=== PATIENT | male | born 2000 | race Caucasian/White ===

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

== ENCOUNTER → 2019-02-11 | Outpatient (CLI) | payer OTHER ==
[~2019-02-11] MED LIST changes: +TRAM50 PO
== END | disposition home or self-care (01) ==
LOC: EDSTATUS 10:00 → LAB FUT 10:00 → LAB 16:14 → LAB SHORT 16:14
DX: K51.90 Ulcerative colitis, unspecified, without complications (principal); K52.9 Noninfective gastroenteritis and colitis, unspecified
CPT/HCPCS: 83993

== ENCOUNTER 2019-04-16 07:44 | Emergency (ER) | payer OTHER ==
[~2019-04-16] VITALS: Ht 177.8 cm; Wt 61.2 kg
== END 2019-04-16 09:52 | disposition home or self-care (01) ==
LOC: ER 07:44
DX: S61.012A Laceration without foreign body of left thumb without damage to nail, initial encounter (principal); S61.211A Laceration without foreign body of left index finger without damage to nail, initial encounter; F32.9 Major depressive disorder, single episode, unspecified; Z79.899 Other long term (current) drug therapy; V29.9XXA Motorcycle rider (driver) (passenger) injured in unspecified traffic accident, initial encounter
CPT/HCPCS: 73130; 99283-25

== ENCOUNTER → 2021-05-02 | Outpatient (CLI) | payer OTHER ==
[2021-05-02 11:53] LABS: BASOPHILS ABSOLUTE AUTO 0.06 K/mm3 (0.00-0.23); BASOPHILS PERCENT AUTO 0 % (0-2); EOSINOPHILS ABSOLUTE AUTO 0.16 K/mm3 (0.00-0.68); EOSINOPHILS PERCENT AUTO 1 % (0-6); Hematocrit 42.4 % (37.0-53.0); Hemoglobin 13.8 g/dL (13.5-17.5); IMMATURE GRAN ABSOLUTE AUTO 0.08 K/mm3 (0.00-0.10); IMMATURE GRAN PERCENT AUTO 0 % (0-1); LYMPHOCYTES ABSOLUTE AUTO 1.89 K/mm3 (0.84-5.20); LYMPHOCYTES PERCENT AUTO 10 % (21-46); MONOCYTES ABSOLUTE AUTO 2.69 K/mm3 (0.16-1.47); MONOCYTES PERCENT AUTO 14 % (4-13); Mean Corpuscular HGB 24.6 pg (26.0-34.0); Mean Corpuscular HGB Conc 32.5 g/dL (31.5-36.5); Mean Corpuscular Volume 76 fL (80-100); Mean Platelet Volume 9.8 fL (9.1-12.4); NEUTROPHILS ABSOLUTE AUTO 14.12 K/mm3 (1.96-9.15); NEUTROPHILS PERCENT AUTO 74 % (41-73); Platelet Count 316 K/mm3 (150-400); RDW Coefficient Variation 17.7 % (11.7-14.2); RDW Standard Deviation 45.5 fL (35.1-46.3); Red Blood Cell Count 5.61 M/mm3 (4.30-5.90)
[2021-05-02 12:04] LABS: Alanine Aminotransfer (ALT/SGP 7 U/L (12-78); Albumin, Blood 3.6 g/dL (3.4-5.0); Albumin/Globulin Ratio 0.8 (0.8-1.8); Alk Phos 77 U/L (40-126); Anion Gap 9 mmol/L (6-16); Aspartate Aminotrans (AST/SGOT 10 U/L (12-37); Bilirubin, Total 0.3 mg/dL (0.1-1.0); Blood Urea Nitrogen 8 mg/dL (8-24); CO2, Blood 27 mmol/L (21-32); Calcium, Blood 8.6 mg/dL (8.5-10.1); Chloride, Blood 98 mmol/L (98-108); Globulin, Blood 4.4 g/dL (2.2-4.0); Glomerular Filtration Rate >60 (60-); Glucose, Blood 101 mg/dL (70-99); Potassium, Blood 3.8 mmol/L (3.5-5.5); Sodium, Blood 134 mmol/L (136-145)
== END | disposition home or self-care (01) ==
LOC: LAB SHORT 11:49
PROVIDERS: Physician Assistant
DX: K51.90 Ulcerative colitis, unspecified, without complications (principal)
CPT/HCPCS: 80053; 85025

== ENCOUNTER 2021-09-23 12:04 | Emergency (ER) | payer OTHER ==
[~2021-09-23] VITALS: Ht 175.3 cm; Wt 63.5 kg
[2021-09-23] MEDS ORDERED: DIPATR PO (12:37)
[2021-09-23] MEDS ORDERED: BALSALAZIDE DI750 M1 PO (12:37)
== END 2021-09-23 12:49 | disposition home or self-care (01) ==
LOC: ER 12:04
DX: Z76.0 Encounter for issue of repeat prescription (principal)
CPT/HCPCS: 99281

== ENCOUNTER 2022-02-21 06:30 | Day surgery (SDC) | payer OTHER ==
[~2022-02-21] VITALS: Ht 175.3 cm; Wt 60.3 kg
[~2022-02-21 06:30] MED LIST changes: +BALSALAZIDE DI750 M1 PO; +DIPATR PO
[2022-02-21 15:10] LABS: Adenovirus F 40/41 Not Detected (NOT DETECT); Astrovirus Not Detected (NOT DETECT); Campylobacter Sp Not Detected (NOT DETECT); Cryptosporidium Not Detected (NOT DETECT); Cyclospora Cayetanensis Not Detected (NOT DETECT); E. Coli O157 Not Detected (NOT DETECT); Entamoeba Histolytica Not Detected (NOT DETECT); Enteroaggregative E. coli-EAEC Not Detected (NOT DETECT); Enteropathogenic E. coli-EPEC Not Detected (NOT DETECT); Enterotoxigenic E. coli-ETEC Not Detected (NOT DETECT); Giardia Lamblia Not Detected (NOT DETECT); Norovirus GI/GII Not Detected (NOT DETECT); Plesiomonas Shigelloides Not Detected (NOT DETECT); Rotavirus A Not Detected (NOT DETECT); Salmonella Sp Not Detected (NOT DETECT); Sapovirus Not Detected (NOT DETECT); Shiga Toxin-prod E. coli-STEC Not Detected (NOT DETECT); Shigella/Enteroin E. coli-EIEC Not Detected (NOT DETECT); Vibrio Cholerae Not Detected (NOT DETECT); Vibrio Sp Not Detected (NOT DETECT); Yersinia Enterocolitica Not Detected (NOT DETECT)
== END 2022-02-21 08:48 | disposition home or self-care (01) ==
LOC: ORSCSDS 06:30
PROVIDERS: Student in an Organized Health Care Education/Training Program
PROC: 0DBE8ZX Excision of Large Intestine, Via Natural or Artificial Opening Endoscopic, Diagnostic (ICD-10-PCS; principal; 2022-02-21 08:00)
PROC: 0DBP8ZX Excision of Rectum, Via Natural or Artificial Opening Endoscopic, Diagnostic (ICD-10-PCS; principal; 2022-02-21 08:00)
DX: K51.90 Ulcerative colitis, unspecified, without complications (principal); K62.5 Hemorrhage of anus and rectum; R19.7 Diarrhea, unspecified; Z79.899 Other long term (current) drug therapy
CPT/HCPCS: 87507; 88305; J2250; J2704; J7120

== ENCOUNTER 2022-07-07 03:32 | Emergency (ER) | payer OTHER ==
[~2022-07-07] VITALS: Ht 175.3 cm; Wt 72.6 kg
[~2022-07-07 03:32] MED LIST changes: +AMOCLA875 PO; +[UNRECOGNIZED DRUG - OTHER] PO
[2022-07-07] MEDS ORDERED: Voltaren100 GM TOP (05:51)
== END 2022-07-07 06:03 | disposition home or self-care (01) ==
LOC: ER 03:32
DX: J06.9 Acute upper respiratory infection, unspecified (principal); R07.81 Pleurodynia
CPT/HCPCS: 71046; 94640; 94664; A9270

== ENCOUNTER 2023-01-13 00:33 | Emergency (ER) | payer OTHER ==
[~2023-01-13] VITALS: Ht 175.3 cm; Wt 61.2 kg
[~2023-01-13 00:33] MED LIST changes: +Voltaren100 GM TOP
[2023-01-13 01:26] LABS: Hematocrit 39.1 % (37.0-53.0); Hemoglobin 12.9 g/dL (13.5-17.5); Mean Corpuscular Volume 79 fL (80-100); Mean Platelet Volume 10.1 fL (9.1-12.4); Platelet Count 385 K/mm3 (150-400); RDW Coefficient Variation 15.5 % (11.7-14.2); RDW Standard Deviation 44.2 fL (35.1-46.3); Red Blood Cell Count 4.97 M/mm3 (4.30-5.90); White Blood Cell Count 19.58 K/mm3 (4.00-11.30)
[2023-01-13 01:44] LABS: Albumin, Blood 3.3 g/dL (3.4-5.0); Albumin/Globulin Ratio 0.8 (0.8-1.8); Bilirubin, Total 0.2 mg/dL (0.1-1.0); Bun/Creatinine Ratio 10.1 (12.0-20.0); Calcium, Blood 8.9 mg/dL (8.5-10.1); Creatinine, Blood 0.7 mg/dL (0.60-1.20); Globulin, Blood 3.9 g/dL (2.2-4.0); Potassium, Blood 3.6 mmol/L (3.5-5.5); Total Protein, Blood 7.2 g/dL (6.4-8.2)
[2023-01-13 01:49] LABS: BAND PERCENT MAN 10 % (0-8); BASOPHILS PERCENT MAN 0 % (0-2); EOSINOPHILS ABSOLUTE MAN 0.19 K/mm3 (0.00-0.68); EOSINOPHILS PERCENT MAN 1 % (0-6); LYMPHOCYTES % ATYPICAL MANUAL 1 % (0-0); LYMPHOCYTES ABSOLUTE MAN 2.93 K/mm3 (0.84-5.20); LYMPHOCYTES PERCENT MAN 14 % (21-46); MONOCYTES ABSOLUTE MAN 3.13 K/mm3 (0.16-1.47); MONOCYTES PERCENT MAN 16 % (4-13); NEUTROPHILS ABSOLUTE MAN 13.31 K/mm3 (1.96-9.15); SEG NEUTROPHILS PERCENT MAN 58 % (41-73); TOTAL CELLS COUNTED 100
[2023-01-13] MEDS ORDERED: CIPR500 PO (02:56)
[2023-01-13] MEDS ORDERED: METR500 PO (02:56)
[2023-01-13 03:00] VITALS: BP 135/67
[2023-01-13] MEDS ORDERED: PRED20 PO (03:28)
== END 2023-01-13 03:36 | disposition home or self-care (01) ==
LOC: ER 00:33 → ICUW 00:34
PROVIDERS: Student in an Organized Health Care Education/Training Program
DX: K52.9 Noninfective gastroenteritis and colitis, unspecified (principal); Z79.899 Other long term (current) drug therapy
CPT/HCPCS: 74177; 80053; 85025; 96361; 96374-59; 96375; 99284-25; J1170; J2405; J2930; J7120; Q9967

== ENCOUNTER 2024-07-28 10:33 | Emergency (ER) | payer OTHER ==
[~2024-07-28] VITALS: Ht 175.3 cm; Wt 61.2 kg
[~2024-07-28 10:33] MED LIST changes: +CIPR500 PO; +PRED20 PO
[2024-07-28] MEDS ORDERED: NS 1,000 ML IV SCH (10:35)
[2024-07-28] MEDS ORDERED: propofoL 0 ML IV ONE (10:36)
[2024-07-28 11:04] VITALS: BP 132/91
[2024-07-28] MEDS ORDERED: Morphine Sulfate 4 MG/1 ML Injection IV ONE (11:05)
[2024-07-28 11:09] LABS: BASOPHILS ABSOLUTE AUTO 0.05 K/mm3 (0.00-0.23); BASOPHILS PERCENT AUTO 0 % (0-2); EOSINOPHILS ABSOLUTE AUTO 0.22 K/mm3 (0.00-0.68); EOSINOPHILS PERCENT AUTO 1 % (0-6); Hematocrit 38.7 % (37.0-53.0); Hemoglobin 12.9 g/dL (13.5-17.5); IMMATURE GRAN ABSOLUTE AUTO 0.08 K/mm3 (0.00-0.10); IMMATURE GRAN PERCENT AUTO 1 % (0-1); LYMPHOCYTES ABSOLUTE AUTO 4.23 K/mm3 (0.84-5.20); LYMPHOCYTES PERCENT AUTO 26 % (21-46); MONOCYTES ABSOLUTE AUTO 1.49 K/mm3 (0.16-1.47); MONOCYTES PERCENT AUTO 9 % (4-13); Mean Corpuscular HGB 28.1 pg (26.0-34.0); Mean Corpuscular HGB Conc 33.3 g/dL (31.5-36.5); Mean Corpuscular Volume 84 fL (80-100); Mean Platelet Volume 10.9 fL (9.1-12.4); NEUTROPHILS ABSOLUTE AUTO 10.42 K/mm3 (1.96-9.15); NEUTROPHILS PERCENT AUTO 63 % (41-73); Platelet Count 380 K/mm3 (150-400); RDW Coefficient Variation 14.9 % (11.7-14.2); RDW Standard Deviation 45.7 fL (35.1-46.3); Red Blood Cell Count 4.59 M/mm3 (4.30-5.90); White Blood Cell Count 16.49 K/mm3 (4.00-11.30)
[2024-07-28 11:19] LABS: Albumin, Blood 3.6 g/dL (3.4-5.0); Albumin/Globulin Ratio 1.1 (0.8-1.8); Bilirubin, Total 0.5 mg/dL (0.1-1.0); Bun/Creatinine Ratio 15.4 (12.0-20.0); Calcium, Blood 8.7 mg/dL (8.5-10.1); Creatinine, Blood 0.91 mg/dL (0.60-1.20); Globulin, Blood 3.3 g/dL (2.2-4.0); Potassium, Blood 4.4 mmol/L (3.5-5.5); Total Protein, Blood 6.9 g/dL (6.4-8.2)
[2024-07-28] MEDS ORDERED: Ketamine HCl 100 MG / ML 5ML Vial IV ONE ×3 (11:25→12:09)
[2024-07-28 11:38] LABS: International Normalized Ratio 1.07; Prothrombin Time Results 11.4 Sec (9.7-11.5)
== END 2024-07-28 11:31 | disposition short-term general hospital (02) ==
LOC: ER 10:33
PROVIDERS: Emergency Medicine
DX: S21.342A Puncture wound with foreign body of left front wall of thorax with penetration into thoracic cavity, initial encounter (principal); S27.2XXA Traumatic hemopneumothorax, initial encounter
CPT/HCPCS: 32551; 71045; 80053; 85025; 85610; 86850; 86900; 86901; 86920; 96374-59; 99291-25; G0390; J2270; J2704; P9016

== ENCOUNTER 2024-08-03 14:07 | Inpatient (IN) | payer OTHER ==
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
[2024-08-03] MEDS ORDERED: LORazepam 2 MG/ML 1ML Injection IM PRN (15:45)
[2024-08-03] MEDS ORDERED: Haloperidol 5 MG Tab PO PRN (15:45)
[2024-08-03] MEDS ORDERED: LORazepam 2 MG Tab PO PRN (15:45)
[2024-08-03] MEDS ORDERED: Ibuprofen 600 MG Tab PO PRN (15:45)
[2024-08-03] MEDS ORDERED: HydrOXYzine Pamoate 50 MG Cap PO PRN (15:45)
[2024-08-03] MEDS ORDERED: Ondansetron 4 MG SoluTab MM PRN (15:45)
[2024-08-03] MEDS ORDERED: OLANZapine ODT 10 MG Tab MM PRN (15:45)
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
[2024-08-03] MEDS ORDERED: TraZODone HCl 50 MG Tab PO PRN (15:50)
[2024-08-03] MEDS ORDERED: Aluminum Hydroxide 320MG/5ML 473 ML PO PRN (15:50)
[2024-08-03] MEDS ORDERED: Melatonin 3 MG Tab PO PRN (15:50)
[2024-08-03] MEDS ORDERED: Calcium Carbonate 500 MG Tab Chew PO PRN (15:50)
[2024-08-03] MEDS ORDERED: DiphenhydrAMINE HCl 50 MG Cap PO PRN (15:50)
[2024-08-03] MEDS ORDERED: Polyethylene Glycol 3350 17 gm PO PRN (15:50)
[2024-08-03] MEDS ORDERED: Acetaminophen 325 MG TABLET PO PRN (15:50)
[2024-08-03] MEDS ORDERED: Haloperidol Lactate Inj. 5 MG/ML Injection IM PRN (15:55)
[2024-08-03] MEDS ORDERED: OxyCODONE 5 mg/Acetamin 325 mg TABLET PO PRN (15:55)
[2024-08-03] MEDS ORDERED: FLU VACC TS2024-25(6MOS UP)/PF 45 MCG/0.5 ML SYRINGE IM SCH (15:55)
[2024-08-03] MEDS ORDERED: DiphenhydrAMINE HCl 50 MG/ML 1ML Vial IV PRN (15:55)
--- NOTE | 2024-08-03 16:00 | NUR ---
PT AGITATION PT COMES TO NURSES STATION TO INFORM THAT HE CANNOT DO THIS AND NEEDS TO DISCHARGE. PT VERY AGGRESSIVE AND FISTS CLENCHED. PT INFORMS THAT HE NEEDS HIS OWN ROOM AND NEEDS SOME PAIN MEDS. PT INFORMED THAT AWAITING PROVIDER ORDERS FOR MEDICATIONS. PT RETURNED TO ROOM AND SHORTLY RETURNED TO NURSES STATION AGAIN REPORTING NEED TO LEAVE AND VISIBLY AGITATED, W/ HANDS TREMBLING. PT REPORTS HOLE IN WALL IN HIS ROOM. I INFORMED PT THAT LETS HOPE THIS IS NOT TRUE. PT REQUESTED PAIN MEDS. PT REQUESTED TO USE THE PHONE TO CALL HIS MOM. PT ALLOWED TO USE THE PHONE IN SENSORY ROOM, WHERE HE CONTINUED TO YELL FOUL LANGUAGE INTO THE PHONE. PT CONTINUES TO REPORT THAT STAFF HERE IS NOT GIVING HIM HIS MEDS. PT EDUCATED ON ORDERING PROCESS FOR MEDICATIONS AND REQUESTED TO LOWER VOICE TO NOT DISTURB OTHER PEERS. PT LOWERED VOICE MOMENTARILY THEN BEGAN YELLING AGAIN. ORDERS/ MEDS PLACED AND HALDOL/BENADRYL/ATIVAN PROVIDED TO PT WELL PERCOCET FOR 7/10 PAIN TO LEFT CHEST.
--- NOTE | 2024-08-03 17:00 | NUR ---
PT VISITORS OF MOM AND SISTER. PT MUCH MORE PEACEFUL AND PLEASANT AT THIS TIME. PT EATING DINNER IN VISITOR ROOM DURING SISTER VISIT. NO C/O AT THIS TIME.
--- NOTE | 2024-08-03 18:00 | NUR ---
PT TO BED FOLLOWING VISITS. PT SLEEPING IN ROOM ALONE ROOMMATE MOVED TO OTHER ROOM. NO CONCERNS.
--- NOTE | 2024-08-04 04:09 | NUR ---
Patient is alert and oriented and pleasant and cooperative with care. Up in milieu until approximately 2200 at lights out. Patient denies SI, HI or AVH or assessment. Sleeping well overnight. Still having complaints of minor pain left shoulder. Ibuprophen resolved. Will continue close monitoring every 15 minutes for safety.
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
[2024-08-04] MEDS ORDERED: Multivitamins 1 Tab PO SCH (09:00)
[2024-08-04] MEDS ORDERED: BuPROPion HCl SR 100 MG TabCR PO SCH (12:00)
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
[2024-08-04 20:30] VITALS: BP 144/94
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
[2024-08-05 08:04] VITALS: BP 141/85
--- NOTE | 2024-08-05 17:46 | NUR ---
SHIFT SUMMARY: PT HAS BEEN UP PARTICIPATING IN THE MILIEU ALL DAY, IN GROUPS AND MEALS. HE HAS ASKED A COUPLE OF TIMES TODAY WHEN HE CAN LEAVE, HE STATES UNDERSTANDING TO TIME FRAME GIVEN. DRESSINGS WERE CHANGED TODAY AND CHARTING TO WOUND CARE COMPLETED WITH SPECIFIC DESCRIPTION OF WOUNDS. PT HAS BEEN COOPERATIVE AND APPROPRIATE ALL DAY, A&Ox4
[2024-08-05 21:27] VITALS: BP 139/87
--- NOTE | 2024-08-05 22:47 | NUR ---
EVENING SUMMARY Pt reports significant improvement in mood after proposed plan to discharge on Friday. PRN melatonin and Percocet given at HS. No meds are currently scheduled at HS. Pt woke up at approximately 2230 d/t pain at wound sites but denied other physical symptoms/concerns. Reviewed orders after pt inquired about the addition of PRN muscle relaxer. Confirmed that this had been relayed in AM report and to provider, but no order for Robaxin. Pt accepts this and states "I liked Gregorio better. They gave me what I needed."
--- NOTE | 2024-08-06 02:32 | NUR ---
ASSUMED CARE FROM PRIOR RN. PATIENT CONTINUES TO SLEEP. NO NOTED BEHAVIORS OR ISSUES.
--- NOTE | 2024-08-06 03:57 | NUR ---
PATIENT WOKE UP WITH WOUND PAIN = 6/10. HE WAS TEARFUL. RN GAVE PRN MEDICATION PERCOCET AND HYDROXYZINE PER ORDERS. PATIENT WAS ABLE TO GO BACK TO SLEEP. MEDICATIONS WERE EFFECTIVE. NO NOTED BEHAVIORS OR ISSUES. WE WILL CONTINUE TO MONITOR EVERY 15 MIN FOR SAFETY AND COMFORT.
[2024-08-06 08:02] VITALS: BP 142/92
[2024-08-06] MEDS ORDERED: Cyclobenzaprine HCl 10 MG Tab PO PRN (11:00)
[2024-08-06] MEDS ORDERED: OxyCODONE 5 mg/Acetamin 325 mg TABLET PO PRN (11:05)
--- NOTE | 2024-08-06 16:01 | NUR ---
SHIFT SUMMARY PT AxOx4. PLEASANT AND COOPERATIVE WITH CARE. PT DENIES SI/HI AND AVTH THIS SHIFT. HE FOLLOWED CARE PLAN TODAY INCLUDING TAKING MEDS PRESCRIBED, PARTICIPATING IN GROUPS AND MINGLING APPROPRIATELY WITH STAFF/PEERS ON THE UNIT. PT ALSO HAD A VISIT WITH SISTER ON THE UNIT TODAY. PAIN MEDS & MUSCLE RELAXERS ADMINISTERED PER EMAR WITH REPORTED RELIEF. CURRENT PLAN IS FOR PATIENT TO DC EARLY NEXT WEEK BACK HOME. HE IS CURRENTLY SITTING IN GROUP ROOM WATCHING TV. DENIES ANY NEEDS AT THIS TIME.
--- NOTE | 2024-08-06 18:28 | NUR ---
SHIFT SUMMARY Speech Professor assumed patient care at 1600. Pt has spent the evening watching TV with peers and staff. No c/o SI, HI, or hallucinations. Pt stated that the oxycodone/APAP he took from the previous RN was effective for his pain. Pt took his 1530 meds without issue. Staff continues to monitor for safety and wellness.
[2024-08-07 00:30] VITALS: BP 151/79
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
--- NOTE | 2024-08-07 07:13 | NUR ---
PT UP SITTING ON BED AND READING BOK. A/O X4. DISCUSSED DISCHARGE PLANNING. HE WILL GO STAY WITH MOTHER FOR A WHILE. WANTS TO KEEP GOING TO THERAPY. WOUNDS COVERED WITH BANDAIDS. WILL CHANGE AFTER SHOWER. PT IS PLEASANT AND COOPERATIVE. STATES THAT HE NEEDS BREAK THROUGH PAIN MED AND USES TYLENOL . WILL GET ORDER TODAY FOR SOME. OLIVIA SI AND STATED THAT HE NEVER WANTED TO DO THIS AGAIN. WILL CONTINUE TO MONITOR.
[2024-08-07 08:03] VITALS: BP 145/78
[2024-08-07] MEDS ORDERED: Acetaminophen 325 MG TABLET PO PRN (10:30)
[2024-08-07] MEDS ORDERED: OxyCODONE HCL 5 MG TAB PO PRN (10:30)
--- NOTE | 2024-08-07 16:41 | NUR ---
SHIFT SUMMARY: PT A/OX4. PLEASANT AND COOPERATIVE. CHEST PAIN STILL BETWEEN 7-10. HAS TAKEN PEROCET THAT WAS CHANGED TO OXYCODONE ND GIVEN A DOSE OF THAT. CAN HAVE TYLENOL 325MG FOR IN BETWEEN PAIN CONTROL. PT HAS BEEN IN POSITIVE AND BRIGHT MOOD.. PARTICIPATING IN GROUPS AND ACTIVITES THROUGH THE DAY. DRESSINGS CHANGED AT 1030. WOUNDS LOOK CLEAN AND NO REDNESS NOTED. WILL CONTINUE TO MONITOR.
[2024-08-07 22:06] VITALS: BP 140/77
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
--- NOTE | 2024-08-08 05:54 | NUR ---
PATIENT CONTINUES TO SLEEP. NO NOTED BEHAVIORS OR ISSUES.
[2024-08-08 07:34] VITALS: BP 136/73
--- NOTE | 2024-08-08 07:50 | NUR ---
PT UP A THE BEGINNING OF THE SHIFT.. PT A/O X4. IN POSITIVE MOOD AND INTERACTING WELL WITH OTHERS AT BREAKFAST TIME. WILL CONTINUE TO MONITOR
--- NOTE | 2024-08-08 14:40 | NUR ---
WOUND CARE REFERRAL FAXED TO [facility]IN[facility] FOR REVIEW. THEIR CONTACT PHONE NUMBER IS [phone].
--- NOTE | 2024-08-08 17:24 | NUR ---
SHIFT SUMMARY: PT A/O X4. DENIES SI. PT TO BE DISCHAGED HOME TOMORROW WITH A REFERRAL FOR WOUND CARE. PT HAS BEEN IN A POSITIVE MOOD AND INTERACTING WITH OTHERS IN THE MILIEU. PAIN MED GIVEN TWICE TODAY FOR CHEST WOUND. PAIN USUALLY 5/10 MOST OF THE TIME AFTER BEING MEDICATED. DRESSING CHANGE TO BE DONE TOMORROW. PT IS ABLE PERFORM ALL ADL'S WITHOUT RESTRICTION. WILL CONTINUE TO MONITOR.
[2024-08-08 21:24] VITALS: BP 130/76
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
--- NOTE | 2024-08-09 06:11 | NUR ---
PATIENT WOKE EARLY AND NEEDED PAIN MEDICATION. HE C/O OF PAIN = 7/10. PRN OXYCODONE GIVEN WITH GOOD RELEIF. HE IS EXCITED ABOUT BEING DISCHARGED LATER TODAY. HE TELLS ME "I'M READY". NO NOTED BEHAVIORS OR ISSUES.
[2024-08-09 08:02] VITALS: BP 135/71
[2024-08-09] MEDS ORDERED: BUPR100ER PO (10:31)
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
== END 2024-08-09 11:14 | disposition home or self-care (01) | DRG 882 ==
LOC: BHU 14:07
PROVIDERS: ADMIT Psychiatry & Neurology Psychiatry
DX: F43.25 Adjustment disorder with mixed disturbance of emotions and conduct (principal); F32.A Depression, unspecified
CPT/HCPCS: A9270

== ENCOUNTER 2024-09-14 01:33 | Emergency (ER) | payer OTHER ==
[~2024-09-14] VITALS: Ht 175.3 cm; Wt 65.8 kg
[~2024-09-14 01:33] MED LIST changes: +BUPR100ER PO
[2024-09-14 01:42] VITALS: BP 155/81
[2024-09-14] MEDS ORDERED: HYDROXYZ HCL (01:46)
[2024-09-14] MEDS ORDERED: Amoxicillin 500 MG Cap PO ONE (02:10)
[2024-09-14] MEDS ORDERED: Lidocaine 2% Viscous Soln 15 ML UDC PO ONE (02:15)
[2024-09-14] MEDS ORDERED: Dexamethasone Sod Phos 10 MG/ML 1ML VIAL PO ONE (02:15)
[2024-09-14] MEDS ORDERED: AMOX500 PO (02:18)
== END 2024-09-14 02:31 | disposition home or self-care (01) ==
LOC: ER 01:33
DX: J02.0 Streptococcal pharyngitis (principal); Z88.6 Allergy status to analgesic agent
CPT/HCPCS: 87430; 99283; A9270; J1100

== ENCOUNTER 2024-10-02 00:54 | Emergency (ER) | payer OTHER ==
[~2024-10-02] VITALS: Ht 175.3 cm; Wt 65.8 kg
[~2024-10-02 00:54] MED LIST changes: +AMOX500 PO; +HYDROXYZ HCL
[2024-10-02 01:09] VITALS: BP 132/78
[2024-10-02] MEDS ORDERED: Lidocaine 2% Viscous Soln 15 ML UDC PO ONE (03:30)
[2024-10-02] MEDS ORDERED: Amoxicillin/Clavulanate K 875 MG Tab PO ONE (03:30)
[2024-10-02] MEDS ORDERED: AMOCLA875 PO (05:10)
== END 2024-10-02 05:29 | disposition home or self-care (01) ==
LOC: ER 00:54
DX: J02.0 Streptococcal pharyngitis (principal); K00.7 Teething syndrome; Z88.6 Allergy status to analgesic agent; Z79.899 Other long term (current) drug therapy; Z79.1 Long term (current) use of non-steroidal anti-inflammatories (NSAID); Z79.2 Long term (current) use of antibiotics
CPT/HCPCS: 70491; 87430; 99283-25; A9270; Q9967